=== PATIENT | male | born 1955 | race Caucasian/White ===

== ENCOUNTER 2021-07-07 09:59 | Emergency (ER) | payer MEDICAID ==
[~2021-07-07] VITALS: Ht 165.1 cm; Wt 69.9 kg
[2021-07-07 10:04] VITALS: BP 148/75
[2021-07-07] MEDS ORDERED: PRED20TA5 PO (11:27)
[2021-07-07 11:40] VITALS: BP 148/75
--- NOTE | 2021-07-07 11:40 | NUR ---
NO NURSING INTERVENTIONS PROVIDED
--- NOTE | 2021-07-07 11:40 | NUR ---
Patient discharged with v/s stable. Written and verbal after care instructions ABOUT [facility] given and explained. Patient alert, oriented and verbalized understanding of instructions. Ambulatory with steady gait. All questions addressed prior to discharge. ID band removed. Patient advised to follow up with PMD. Rx of PREDNISONE given. Patient educated on indication of medication including possible reaction and side effects. Opportunity to ask questions provided and answered.
== END 2021-07-07 11:40 | disposition home or self-care (01) ==
LOC: MED 09:59
DX: G51.0 Bell's palsy (principal); R53.1 Weakness
CPT/HCPCS: 99283